=== PATIENT | female | born 1980 | race Caucasian/White ===

== ENCOUNTER → 2019-07-08 | Outpatient (CLI) | payer OTHER ==
[~2019-07-08] MED LIST: PROHANCE 279.3MG/ML 15ML VIAL (A9576) As Ordered ONE
--- NOTE | 2019-07-08 13:25 | REP ---
MRI THORACIC SPINE WITHOUT AND WITH IV CONTRAST: HISTORY: Probable multiple sclerosis, evaluate for cord lesions. TECHNIQUE: Sagittal and axial T1- and T2-weighted scans are acquired in the usual fashion with and without fat saturation. Sequences include spin echo, turbo spin-echo, and STIR imaging sequences. Gadolinium enhancement dose is 13.6 mL of intravenous ProHance. MRI FINDINGS: Thoracic vertebral body heights are preserved. Alignment is normal. Cortical and medullary bone signal intensity are normal. Thoracic cord is normal in course, caliber, and signal intensity on T1- and T2-weighted scans. No cord lesion is appreciated on pre- or postcontrast imaging. No abnormal intramedullary contrast enhancement is seen. There is mild disc space narrowing at the T6-T7 disc level. No thoracic disc protrusion is seen. No neural foraminal lesion is observed. IMPRESSION: Minimal disc space narrowing at T6-T7. Otherwise normal thoracic spine MRI study. There is no evidence of demyelinating lesion in the thoracic spinal cord. Electronically Signed by Alec Cancino MD 07/08/2019 01:46 P
--- NOTE | 2019-07-08 14:08 | REP ---
MRI cervical spine without and with IV contrast: History: 39-year-old with probable multiple sclerosis, evaluate for cord lesions. No comparison MR imaging. Technique: Sagittal and axial T1 and T2-weighted scans are acquired in the usual fashion with and without fat saturation. Sequences include spin echo, turbo spin-echo, and STIR imaging sequences. Gadolinium enhancement dose is 13.6 mL of intravenous ProHance. MRI findings: There is reversal of the normal cervical lordosis. Cervical vertebral body heights are preserved alignment is normal. Craniocervical junction is unremarkable. Cervical cord is normal in course caliber and signal intensity on T1 and T2-weighted scans. No abnormal signal intensity is seen within the substance of the cervical spinal cord. Postcontrast images show no abnormal intramedullary contrast enhancement. Axial and sagittal images taken at C2-3 and C3-4 disc levels show no abnormality. At C4-5, there is diffuse bulging of the posterior disc margin. This effaces the ventral subarachnoid space. No cord compression or central canal stenosis is seen. No neural foraminal narrowing is seen. At C5-6, there is a moderate diffuse disc bulge effacing the ventral subarachnoid space. No foraminal narrowing is seen. Canal size is borderline. Midline AP dimension of the thecal sac at this level is 9 mm. There is minimal uncovertebral spurring on the right. The exam is otherwise unremarkable. Impression: There is no evidence of demyelinating lesion in the cervical cord. There are degenerative disc changes at C5-6 with diffuse moderate disc bulging and mild right-sided uncovertebral spurring. At C4-5 there is mild diffuse disc bulging. Electronically Signed by Alec Cancino MD 07/08/2019 04:04 P
== END ==
LOC: M RAD 09:57
PROVIDERS: ATTEND Psychiatry & Neurology Neurology
DX: G35 Multiple sclerosis (principal); M50.221 Other cervical disc displacement at C4-C5 level; M50.222 Other cervical disc displacement at C5-C6 level
CPT/HCPCS: 72156; 72157; A9576

== ENCOUNTER → 2019-07-22 | Outpatient (REF) | LOC: M LAB LCGH 13:33 | PROVIDERS: ATTEND Physician Assistant | DX: D48.5 Neoplasm of uncertain behavior of skin (principal) ==